=== PATIENT | male | born 1935 | race Caucasian/White ===

== ENCOUNTER 2020-06-20 20:06 | Inpatient (IN) | payer MEDICARE, BC ==
[~2020-06-20] VITALS: Ht 185.4 cm; Wt 84.4 kg
--- NOTE | 2020-06-20 20:10 | NUR ---
PT AAOX3, C/O R ARM PAIN. PLACED ON MONITOR AND PULSE OX. VSS. NO ACUTE DISTRESS NOTED. MD AT BEDSIDE FOR EVAL. AWAITING ORDERS.
--- NOTE | 2020-06-20 20:15 | NUR ---
PT AAOX3, NAME, , PLACE. C/O L ARM PAIN. STATED GOES TO DIALYSIS TTHF
--- NOTE | 2020-06-20 20:58 | NUR ---
LINE ESTABLISHED LH 20G, BLOOD COLLECTED, SENT TO LAB.
--- NOTE | 2020-06-20 20:59 | NUR ---
RADIOLOGY AT BEDSIDE.
[2020-06-20 21:06] LABS: BASOPHILS % (AUTO) 0.6 % (0.0-2.0); EOSINOPHILS % (AUTO) 3.7 % (0.0-6.0); HEMATOCRIT 32 % (39-51); HEMOGLOBIN 10.5 g/dL (13.5-17.5); LYMPHOCYTES # (AUTO) 0.7 /CMM (0.8-4.8); LYMPHOCYTES % (AUTO) 14.7 % (20.0-44.0); MEAN CORPUSCULAR HGB CONC 33 g/dl (31.0-36.0); MEAN CORPUSCULAR VOLUME 90 fL (80-96); MONOCYTES # (AUTO) 0.4 /CMM (0.1-1.30); MONOCYTES % (AUTO) 8.3 % (2.0-12.0); NEUTROPHILS # (AUTO) 3.4 /CMM (1.8-8.9); NEUTROPHILS % (AUTO) 72.7 % (43.0-81.0); PLATELET COUNT (AUTO) 268 /CMM (150-450); RED BLOOD CELL COUNT(AUTO) 3.49 MIL/uL (4.5-6.0); WHITE BLOOD COUNT (AUTO) 4.7 K/uL (4.3-11.0)
[2020-06-20 21:17] LABS: CALCIUM, SERUM 9.3 mg/dL (8.5-10.1); CARBON DIOXIDE 31 mmol/L (21-32); CHLORIDE 98 mmol/L (98-107); CREATININE 7.4 mg/dL (0.6-1.3); GLUCOSE 150 mg/dL (74-106); POTASSIUM 3.9 mmol/L (3.5-5.1); SODIUM SERUM 137 mmol/L (136-145); UREA NITROGEN, BLOOD 46 mg/dL (7-18)
--- NOTE | 2020-06-20 21:19 | NUR ---
US AT BEDSIDE
--- NOTE | 2020-06-20 21:19 | NUR ---
COVID SWAB COLLECTED, SENT TO LAB.
[2020-06-20] MEDS ORDERED: NITROGLYCERIN PACKET 1 GM PACKET TD ONE (22:00)
[2020-06-20] MEDS ORDERED: ASPIRIN 325 MG TABLET PO ONE (22:00)
--- NOTE | 2020-06-20 22:00 | NUR ---
PT NOW C/P CP, PA AT BEDSIDE FOR EVAL. AWAITING ORDERS.
--- NOTE | 2020-06-20 22:20 | NUR ---
BURKE DAUGHTER. PHONE [phone]
--- NOTE | 2020-06-20 22:29 | NUR ---
PT NOW C/O CP. GIVEN ASPIRIN 325 PO. AWAITING FOR BP AND HR FOR NITRO.
--- NOTE | 2020-06-20 22:51 | NUR ---
PT IN BED RESTING COMFORTABLY. PROVIDED WITH CRACKERS.
--- NOTE | 2020-06-20 23:50 | NUR ---
REPORT GIVEN TO JEREMY BRAY FOR TANJA
[2020-06-21] VITALS (8 sets, daily range): BP systolic 111–143; BP diastolic 52–67
[2020-06-21] MEDS ORDERED: Z GUARD REMEDY 2 OZ OINT TP PRN
[2020-06-21] MEDS ORDERED: MAGNESIUM HYDROXIDE 30 ML UDC PO PRN
[2020-06-21] MEDS ORDERED: ZOLPIDEM TARTRATE 5 MG TABLET PO PRN
[2020-06-21] MEDS ORDERED: MAG HYDROX/AL HYDROX/SIMETH 30 ML UDC PO PRN
[2020-06-21] MEDS ORDERED: ACETAMINOPHEN 325 MG TABLET PO PRN
[2020-06-21] MEDS ORDERED: HYDROCODONE/APAP 5/325MG TABLET PO PRN
[2020-06-21] MEDS ORDERED: ONDANSETRON HCL/PF 4 MG/2 ML VIAL IVP PRN
--- NOTE | 2020-06-21 00:16 | NUR ---
PT TRANSFERED PER ACLS PROTOCOL
[2020-06-21] MEDS ORDERED: LEVO500T90 PO (00:23)
[2020-06-21] MEDS ORDERED: TAMS-12 PO (00:23)
[2020-06-21] MEDS ORDERED: POLY17PO4 PO (00:23)
[2020-06-21] MEDS ORDERED: INSU100V39 SQ (00:23)
[2020-06-21] MEDS ORDERED: SERT25TA PO (00:23)
[2020-06-21] MEDS ORDERED: FINA5TAB3 PO (00:23)
[2020-06-21] MEDS ORDERED: RISP1TAB7 PO (00:23)
[2020-06-21] MEDS ORDERED: HYDR-4384 PO (00:23)
[2020-06-21] MEDS ORDERED: PANT40TA2 PO (00:23)
[2020-06-21] MEDS ORDERED: SEVE800T8 PO (00:23)
--- NOTE | 2020-06-21 01:08 | NUR ---
MILANESE KNITTING MACHINE OPERATOR ADMITTING NOTES ADMITTED PATIENT, TRANSPORTED VIA GURNEY. CALM, NO SIGNS OF ACUTE RESPIRATORY OR CARDIAC DISTRESS NOTED. ALERT ORIENTED X3 WITH EPISODE OF CONFUSION. COOPERATES WITH NURSING CARE. INITIATED ADMISSION. SKIN IS INTACT A QUICK OVERVIEW. PATIENT REFUSED TO HAVE THOROUGH SKIN ASSESSMENT. NO OPEN WOUND NOTED WITH HD CATH ON HIS RIGHT ARM PAIN. PATIENT IS REQUESTING TO REST AND SLEEP AT THIS TIME. CONNECTED TO TELE MONITOR, MONITOR READS SINUS BRADYCARDIA 50s. ORIENTED TO ROOM AND THE USE OF CALL LIGHT. PERIPHERAL IV ACCESS ON HIS LEFT HAND G#20 INTACT AND PATENT. KEEP CLEAN WARM DRY AND COMFORTABLE. ALL NEEDS ANTICIPATED. WILL CONTINUE TO MONITOR ACCORDINGLY.
[2020-06-21 06:51] LABS: BASOPHILS % (AUTO) 0.9 % (0.0-2.0); EOSINOPHILS % (AUTO) 5.4 % (0.0-6.0); HEMATOCRIT 30 % (39-51); HEMOGLOBIN 10.2 g/dL (13.5-17.5); LYMPHOCYTES # (AUTO) 0.7 /CMM (0.8-4.8); LYMPHOCYTES % (AUTO) 16.6 % (20.0-44.0); MEAN CORPUSCULAR HGB CONC 34 g/dl (31.0-36.0); MEAN CORPUSCULAR VOLUME 90 fL (80-96); MONOCYTES # (AUTO) 0.4 /CMM (0.1-1.30); MONOCYTES % (AUTO) 9.6 % (2.0-12.0); NEUTROPHILS # (AUTO) 2.9 /CMM (1.8-8.9); NEUTROPHILS % (AUTO) 67.5 % (43.0-81.0); PLATELET COUNT (AUTO) 261 /CMM (150-450); RED BLOOD CELL COUNT(AUTO) 3.38 MIL/uL (4.5-6.0); WHITE BLOOD COUNT (AUTO) 4.3 K/uL (4.3-11.0)
--- NOTE | 2020-06-21 07:01 | NUR ---
SHOWROOM SALES CONSULTANT NOTES ALL NEEDS ATTENDED AND MET, ABLE TO REST AND SLEPT AT INTERVALS. TELEMONITOR READS SINUS EUGENE 48 - 52. KEEP CLEAN WARM DRY AND COMFORTABLE. SAFETY MEASURES IN PLACE, CALL LIGHT WITHIN EASY REACH. WILL ENDORSE TO AM NURSE FOR CONTINUITY OF CARE.
[2020-06-21 07:08] LABS: CHOLESTEROL 119 mg/dL (<200); HDL CHOLESTEROL 31 mg/dL (40-60); LDL 71 mg/dL (0-99); TRIGLYCERIDES 81 mg/dL (30-150)
[2020-06-21 07:17] LABS: CALCIUM, SERUM 9.3 mg/dL (8.5-10.1); CARBON DIOXIDE 31 mmol/L (21-32); CHLORIDE 100 mmol/L (98-107); GLUCOSE 105 mg/dL (74-106); MAGNESIUM 2.4 mg/dL (1.8-2.4); PHOSPHORUS 3.7 mg/dL (2.5-4.9); SODIUM SERUM 139 mmol/L (136-145); UREA NITROGEN, BLOOD 50 mg/dL (7-18)
[2020-06-21 07:19] LABS: CREATININE 7.9 mg/dL (0.6-1.3)
--- NOTE | 2020-06-21 07:35 | NUR ---
MS RN Received on bed, awake,alert,oriented x4,not in any form of distress, respirations even and unlabored,no sob noted. lungs are clear,abdomen soft,ositive bowel sounds,denies pain at this time, will monitor patient.
--- NOTE | 2020-06-21 09:20 | NUR ---
ms momin breakfast served,due meds given,tolerated well.
--- NOTE | 2020-06-21 11:30 | NUR ---
ms rn was seen by Robby sanders/ orders made and carried out.
[2020-06-21] MEDS ORDERED: risperiDONE 1 MG TABLET PO SCH (12:00)
[2020-06-21] MEDS: SERTRALINE HCL 25 MG TABLET PO SCH (13:59)
[2020-06-21] MEDS: SEVELAMER CARBONATE 800 MG TABLET PO SCH (14:00)
[2020-06-21] MEDS: TAMSULOSIN 0.4 MG CAP.SR.24H PO SCH (14:00)
[2020-06-21] MEDS: PANTOPRAZOLE 40 MG TABLET.DR PO SCH (14:00)
[2020-06-21] MEDS: FINASTERIDE (5 MG) 5 MG TABLET PO SCH (14:00)
--- NOTE | 2020-06-21 15:40 | NUR ---
ms merrill patient swab for pcr covid,sent to lab.
--- NOTE | 2020-06-21 17:31 | NUR ---
TECHNICIAN TERMINAL AND REPEATERALUM PLANT SUPERVISOR ADMISSION NOTES RECEIVED PT FROM TELEMETRY FLOOR REPORTED GIVEN BY BENY BRAY. PT AAOX3, RESPONSIVE TO STIMULI, EPISODES OF CONFUSION. RESPIRATION EVEN AND NON LABORED WITH NO ACUTE RESPIRATORY DISTRESS, TOLERATING RA. ABD SOFT AND NON DISTENDED WITH ACTIVE BOWEL SOUNDS, PT ABLE TO URINATE CLOUDY URINE PER REPORT, WITH HD TTS, SCHEDULED TODAY. PT DENIES PAIN AND DISCOMFORT. SKIN WARM TO TOUCH AND DRY. IV SITE AT LEFT HAND #20 PATENT IN FLUSHING. TELE MONITOR SHOWS SINUS BRADYCARDIA TO SINUS RHYTHM. BED IN LOW LOCKED POSITION, SR X UP FOR SAFETY, SEMI FOWLERS, CALL LIGHT WITHIN REACH. WILL CONTINUE TO MONITOR CARE
--- NOTE | 2020-06-21 17:45 | NUR ---
ms rn patient transferred to [facility] w/ r/o standard. Addendum: 06/21/20 at 1822 by BENY GAMBOA RN wrong time entry
--- NOTE | 2020-06-21 18:52 | NUR ---
OUTSIDE PLANT TECHNICIAN CLOSING NOTES PT A/OX3, ABLE TO MAKE NEEDS KNOWN. NOT IN ACUTE RESPIRATORY DISTRESS, TOLERATING RA WITH NO SOB. PT DENIES PAIN AND DISCOMFORT. SKIN WARM TO TOUCH AND DRY. IV SITE AT LEFT HAND @ 20, NO S/SX ON INFILTRATION. HD TODAY, RIGHT ARM HD SITE. WAITING FOR NURSE. TELE MONITOR SHOWS SINUS RHYTHM 62 WITH PAC AND 1ST DEGREE BLOCK. ALL CONCERNS ATTENDED. ENDORSED CARE TO NEXT SHIFT.
--- NOTE | 2020-06-21 19:10 | NUR ---
OPHTHALMIC MEDICAL ASSISTANT NOTES RECEIVED PT IN AWAKE AND ABLE TO MAKE NEEDS KNOWN. PT A/OX2-3 WITH PERIODS OF CONFUSION. RESPIRATIONS EVEN AND NON-LABORED WITH NO S/S OF ACUTE DISTRESS OR SOB NOTED. NO COMPLAINTS OF PAIN AT THIS TIME. PT NOTED WITH IV SITE AT LEFT HAND #20 PATENT AND SL. BAYRON AV SHUNT. SAFETY MEASURES IN PLACE WITH BED IN LOWEST LOCKED POSITION WITH SIDE RAILS UP X2. CALL LIGHT WITHIN REACH. WILL CONTINUE TO MONITOR.
[2020-06-21] MEDS: risperiDONE 1 MG TABLET PO SCH (22:13)
--- NOTE | 2020-06-21 22:46 | NUR ---
WET PRESS TENDER NOTES PT NOTED WITH URINARY URGENCY, PAIN, AND DIFFICULTY URINATING. MD MADE AWARE. ORDER FOR UA WITH CULTURE. WILL CONTINUE TO MONITOR.
[2020-06-21 23:23] LABS: BILIRUBIN,URINE NEGATIVE (NEGATIVE); BLOOD, URINE MODERATE Ery/uL (NEGATIVE); COLOR,URINE YELLOW (YELLOW); LEUKOCYTE ESTERASE ,URINE LARGE (NEGATIVE); NITRITE, URINE NEGATIVE (NEGATIVE); PROTEIN,URINE 100 mg/dl (NEGATIVE); UGLUCOSE NEGATIVE (NEGATIVE); UROBILINOGEN,URINE 0.2 EU/dL (0.2)
--- NOTE | 2020-06-21 23:31 | NUR ---
INTELLIGENCE APPLICATIONS NOTES PT DONE WITH DIALYSIS, 1.5L OUT. WILL CONTINUE TO MONITOR.
[2020-06-21 23:39] LABS: BACTERIA,URINE Few /HPF (None Seen); SQUAMOUS EPITHELIAL CELL,UR Few /HPF (None Seen); WBC,URINE TOO NUMEROUS TO COUN /HPF (0-3)
[2020-06-22] VITALS: BP 94/46
[2020-06-22 04:00] VITALS: BP 95/47
--- NOTE | 2020-06-22 06:51 | NUR ---
RUBBER PRESS OPERATOR NOTES PT IN AWAKE AND ABLE TO MAKE NEEDS KNOWN. PT A/OX2-3 WITH PERIODS OF CONFUSION. RESPIRATIONS EVEN AND NON-LABORED WITH NO S/S OF ACUTE DISTRESS OR SOB NOTED THROUGHOUT SHIFT. NO COMPLAINTS OF PAIN AT THIS TIME. PT NOTED WITH IV SITE AT LEFT HAND #20 PATENT AND SL. PT KEPT CLEAN, DRY, AND COMFORTABLE. PT NOTED WITH BAYRON AV SHUNT. SAFETY MEASURES IN PLACE WITH BED IN LOWEST LOCKED POSITION WITH SIDE RAILS UP X2. CALL LIGHT WITHIN REACH. WILL ENDORSE TO ONCOMING NURSE FOR TANJA.
[2020-06-22 07:00] LABS: BASOPHILS % (AUTO) 0.7 % (0.0-2.0); EOSINOPHILS % (AUTO) 4.7 % (0.0-6.0); HEMATOCRIT 29 % (39-51); HEMOGLOBIN 9.7 g/dL (13.5-17.5); LYMPHOCYTES # (AUTO) 0.7 /CMM (0.8-4.8); LYMPHOCYTES % (AUTO) 12.2 % (20.0-44.0); MEAN CORPUSCULAR HGB CONC 33 g/dl (31.0-36.0); MEAN CORPUSCULAR VOLUME 92 fL (80-96); MONOCYTES # (AUTO) 0.4 /CMM (0.1-1.30); MONOCYTES % (AUTO) 7.1 % (2.0-12.0); NEUTROPHILS # (AUTO) 4.5 /CMM (1.8-8.9); NEUTROPHILS % (AUTO) 75.3 % (43.0-81.0); PLATELET COUNT (AUTO) 258 /CMM (150-450)
[2020-06-22 07:02] LABS: CALCIUM, SERUM 9.2 mg/dL (8.5-10.1); CARBON DIOXIDE 30 mmol/L (21-32); CHLORIDE 99 mmol/L (98-107); CREATININE 5.9 mg/dL (0.6-1.3); GLUCOSE 91 mg/dL (74-106); POTASSIUM 4.4 mmol/L (3.5-5.1); SODIUM SERUM 136 mmol/L (136-145); UREA NITROGEN, BLOOD 32 mg/dL (7-18)
[2020-06-22 08:00] VITALS: BP 100/52
[2020-06-22] MEDS: SEVELAMER CARBONATE 800 MG TABLET PO SCH (08:16)
[2020-06-22] MEDS: PANTOPRAZOLE 40 MG TABLET.DR PO SCH (08:16)
[2020-06-22] MEDS: SERTRALINE HCL 25 MG TABLET PO SCH (08:16)
[2020-06-22] MEDS: TAMSULOSIN 0.4 MG CAP.SR.24H PO SCH (08:16)
[2020-06-22] MEDS: FINASTERIDE (5 MG) 5 MG TABLET PO SCH (08:17)
[2020-06-22] MEDS: HEPARIN SODIUM, PORCINE 5000 UNITS/1 ML VIAL SQ SCH (08:22)
[2020-06-22 08:31] LABS: IRON, SERUM 81 ug/dl (50-175); TOTAL IRON BINDING CAPACITY 193 ug/dl (250-450)
[2020-06-22 08:44] LABS: FERRITIN 531 ng/mL (8-388)
[2020-06-22 09:07] VITALS: BP 100/42
[2020-06-22 12:00] VITALS: BP 142/48
[2020-06-22] MEDS ORDERED: EPOETIN ALFA (10,000 UNIT) 10,000 UNIT/ML VIAL SQ ONE (12:00)
--- NOTE | 2020-06-22 12:00 | NUR ---
RN NOTE D/C TELE AND TRANSFERRED TO THIRD FLOOR. REPORT GIVEN TO WILLIE
--- NOTE | 2020-06-22 13:00 | NUR ---
MS RN NOTES PERIPHERAL IV WAS REMOVED BY PATIENT. NEW IV SITE STARTED ON LFA G20 WITH GOOD BLOOD RETURN. WILL CONTINUE TO MONITOR.
[2020-06-22] MEDS: CEFTRIAXONE 1 G in IV D5W 50 ML IV SCH (14:25)
--- NOTE | 2020-06-22 18:44 | NUR ---
MS RN NOTES PATIENT IN BED RESTING NO SOB OR ACUTE DISTRESS NOTED. ALL DUE MEDICATIONS ADMINISTERED. ALL NEEDS MET. WILL ENDORSE CARE TO PM SHIFT.
--- NOTE | 2020-06-22 19:35 | NUR ---
MS RN OPENING NOTES RECEIVED PATIENT IN BED ALERT AND ORIENTED X 2-3. VERBALLY RESPONSIVE AND ABLE TO FOLLOW DIRECTIONS. BREATHING REGULAR AND UNLABORED ON ROOM AIR. LEFT FOREARM G20 IV LINE INTACT AND PATENT, FLUSHING WELL WITH NO BLEEDING OR S/S OF INFILTRATION NOTED. RIGHT UPPER ARM AV SHUNT POSITIVE FOR BRUIT AND THRILL, NO ACTIVE BLEEDING SEE. DENIES SUICIDAL IDEATION OR PAIN/DISCOMFORT AT THIS TIME. BED LOW AND LOCKED ON SEMI FOWLERS POSITION. CALL LIGHT IN REACH. WILL CONTINUE TO MONITOR.
[2020-06-22 20:00] VITALS: BP 125/64
[2020-06-22] MEDS: risperiDONE 1 MG TABLET PO SCH (21:09)
[2020-06-23 05:59] LABS: BASOPHILS % (AUTO) 0.8 % (0.0-2.0); EOSINOPHILS % (AUTO) 3.5 % (0.0-6.0); HEMATOCRIT 30 % (39-51); HEMOGLOBIN 9.7 g/dL (13.5-17.5); LYMPHOCYTES # (AUTO) 0.5 /CMM (0.8-4.8); LYMPHOCYTES % (AUTO) 9.5 % (20.0-44.0); MEAN CORPUSCULAR HGB CONC 33 g/dl (31.0-36.0); MEAN CORPUSCULAR VOLUME 90 fL (80-96); MONOCYTES # (AUTO) 0.3 /CMM (0.1-1.30); MONOCYTES % (AUTO) 6.5 % (2.0-12.0); NEUTROPHILS # (AUTO) 4.1 /CMM (1.8-8.9); NEUTROPHILS % (AUTO) 79.7 % (43.0-81.0); PLATELET COUNT (AUTO) 257 /CMM (150-450); RED BLOOD CELL COUNT(AUTO) 3.27 MIL/uL (4.5-6.0); WHITE BLOOD COUNT (AUTO) 5.2 K/uL (4.3-11.0)
[2020-06-23 06:14] LABS: CARBON DIOXIDE 30 mmol/L (21-32); CHLORIDE 100 mmol/L (98-107); CREATININE 7.3 mg/dL (0.6-1.3); GLUCOSE 95 mg/dL (74-106); SODIUM SERUM 138 mmol/L (136-145); UREA NITROGEN, BLOOD 43 mg/dL (7-18)
--- NOTE | 2020-06-23 06:20 | NUR ---
MS RN CLOSING NOTES PATIENT IN BED ALERT AND ORIENTED X 2 WITH EPISODE OF CONFUSION/AGITATION. AFEBRILE WITH NO S/S OF DISTRESS OBSERVED. LEFT FOREARM G20 IV LINE PATENT AND FLUSHING WELL. RIGHT UPPER ARM AV SHUNT POSITIVE FOR BRUIT AND THRILL, NO ACTIVE BLEEDING SEE. NO COMPLAINTS OF PAIN/DISCOMFORT REPORTED AT THIS TIME. BED LOW AND LOCKED ON SEMI FOWLERS POSITION. CALL LIGHT IN REACH. WILL ENDORSE TO MORNING SHIFT FOR TANJA.
[2020-06-23 08:00] VITALS: BP 126/60
--- NOTE | 2020-06-23 08:01 | NUR ---
MS RN NOTES PATIENT IN BED RESTING. ALERT, ORIENTED X2. PATIENT IS VERY FORGETFUL. NO SOB OR ACUTE DISTRESS NOTED. PERIPHERAL IV INTACT PATENT. SAFETY MEASURES IN PLACE. WILL CONTINUE TO MONITOR.
[2020-06-23] MEDS: SERTRALINE HCL 25 MG TABLET PO SCH (08:55)
[2020-06-23] MEDS: SEVELAMER CARBONATE 800 MG TABLET PO SCH (08:55)
[2020-06-23] MEDS: TAMSULOSIN 0.4 MG CAP.SR.24H PO SCH (08:56)
[2020-06-23] MEDS: FINASTERIDE (5 MG) 5 MG TABLET PO SCH (08:56)
[2020-06-23] MEDS: PANTOPRAZOLE 40 MG TABLET.DR PO SCH (08:56)
[2020-06-23] MEDS: HEPARIN SODIUM, PORCINE 5000 UNITS/1 ML VIAL SQ SCH (08:56)
[2020-06-23] MEDS ORDERED: CEPH-570 PO (10:18)
--- NOTE | 2020-06-23 11:00 | NUR ---
MS RN NOTES CLARIFIED ORDERS WITH DR. MISHRA DISCHARGE IS MEANT TO SNF NOT HOME.
[2020-06-23] MEDS: CEFTRIAXONE 1 G in IV D5W 50 ML IV SCH (13:06)
--- NOTE | 2020-06-23 13:12 | NUR ---
MS RN NOTES PATIENT COMPLETED HD TOLERATED WELL WITH 1 LITTER OUTPUT.
--- NOTE | 2020-06-23 14:43 | NUR ---
MS ASA NOTES CALLED AND GAVE REPORT TO DRU BRAY AT [facility]. ALSO INFORMED PATIENTS DAUGHTER CHACE PHONE NUMBER . DAUGHTER AGREED WITH DISCHARGE. WAITING FOR TRANSPORTATION.
--- NOTE | 2020-06-23 16:05 | NUR ---
MS RN NOTES PATIENT DISCHARGED TO [facility] IN STABLE CONDITION. DISCHARGE PROTOCOL FOLLOWED. MD AWARE OF ABNORMAL LABS AND TESTS. DISCHARGE TEACHING PROVIDED TO SN AT [facility] AND PATIENTS DAUGHTER. PERIPHERAL IV REMOVED WITH MINIMAL BLEEDING. ID BAND REMOVED. PATIENT DISCHARGE WITH AMBULANCE AND EMT.
[2020-06-24] MEDS ORDERED: PANTOPRAZOLE 40 MG TABLET.DR PO SCH (07:30)
== END 2020-06-23 15:40 | DRG 302 ==
LOC: ER 20:13 → TELE 06-21 00:01 → TELE2 06-21 17:46 → MED 06-22 12:02
PROVIDERS: ADMIT Family Medicine
PROC: 5A1D70Z Performance of Urinary Filtration, Intermittent, Less than 6 Hours Per Day (ICD-10-PCS; principal; 2020-06-21)
DX: I25.10 Atherosclerotic heart disease of native coronary artery without angina pectoris (principal); N18.6 End stage renal disease; G92 Toxic encephalopathy; I12.0 Hypertensive chronic kidney disease with stage 5 chronic kidney disease or end stage renal disease; N39.0 Urinary tract infection, site not specified; D63.8 Anemia in other chronic diseases classified elsewhere; E11.22 Type 2 diabetes mellitus with diabetic chronic kidney disease; E11.65 Type 2 diabetes mellitus with hyperglycemia; F03.90 Unspecified dementia, unspecified severity, without behavioral disturbance, psychotic disturbance, mood disturbance, and anxiety; M89.9 Disorder of bone, unspecified; I48.91 Unspecified atrial fibrillation; Z99.2 Dependence on renal dialysis; I70.0 Atherosclerosis of aorta; Z79.4 Long term (current) use of insulin; Z83.3 Family history of diabetes mellitus; Z85.46 Personal history of malignant neoplasm of prostate; Z85.51 Personal history of malignant neoplasm of bladder
CPT/HCPCS: 36415; 71045-TC; 80048-TC; 80061-TC; 81001; 82728-TC; 83540-TC; 83735-TC; 84100-TC; 84484-TC; 85025-TC; 87081-TC; 87086-TC; 90935-TC; 93971-TC; C9803; G0378; J0696; J0885; J1644; J7060; U0003

== ENCOUNTER 2020-07-18 01:56 | Inpatient (IN) | payer MEDICARE, BC ==
[~2020-07-18] VITALS: Ht 177.8 cm; Wt 73.5 kg
[~2020-07-18 01:56] MED LIST: CEPH-570 PO; FINA5TAB3 PO; HYDR-4384 PO; INSU100V39 SQ; PANT40TA2 PO; POLY17PO4 PO; RISP1TAB7 PO; SERT25TA PO; SEVE800T8 PO; TAMS-12 PO
--- NOTE | 2020-07-18 01:57 | NUR ---
PT JARAD FROM [facility] C/O COUGH W/ CONGESTION AND FEVER. PT TESTED POSITIVE FOR COVID LAST 07/13/20. PT AAOX4, VSS, RESPIRATIONS EVEN AND UNLABORED W/ NAD NOTED. PT CONNECTED TO THE COUPON AND BOND COLLECTION CLERK AND POX.
--- NOTE | 2020-07-18 02:20 | NUR ---
BLOOD COLLECTED AND SENT TO LAB
--- NOTE | 2020-07-18 02:26 | NUR ---
PT SATTING 92% ON RA.PT PLACED ON 2 LPM N/C SATTING 96%.
[2020-07-18] MEDS ORDERED: ACETAMINOPHEN 325 MG TABLET PO ONE (02:30)
[2020-07-18] MEDS ORDERED: ACETAMINOPHEN ES 500 MG TABLET ONE (02:33)
--- NOTE | 2020-07-18 02:35 | NUR ---
SAT 98% ON 2L NC.
[2020-07-18 02:50] LABS: CALCIUM, SERUM 8.7 mg/dL (8.5-10.1); CARBON DIOXIDE 31 mmol/L (21-32); CHLORIDE 98 mmol/L (98-107); CREATININE 5.9 mg/dL (0.6-1.3); GLUCOSE 109 mg/dL (74-106); POTASSIUM 3.7 mmol/L (3.5-5.1); SODIUM SERUM 138 mmol/L (136-145); UREA NITROGEN, BLOOD 39 mg/dL (7-18)
[2020-07-18 02:53] LABS: BASOPHILS % (AUTO) 0.5 % (0.0-2.0); EOSINOPHILS % (AUTO) 0.8 % (0.0-6.0); HEMATOCRIT 24 % (39-51); LYMPHOCYTES # (AUTO) 0.2 /CMM (0.8-4.8); LYMPHOCYTES % (AUTO) 4.1 % (20.0-44.0); MEAN CORPUSCULAR HGB CONC 33 g/dl (31.0-36.0); MEAN CORPUSCULAR VOLUME 92 fL (80-96); MONOCYTES # (AUTO) 0.2 /CMM (0.1-1.30); MONOCYTES % (AUTO) 4.1 % (2.0-12.0); NEUTROPHILS # (AUTO) 4.2 /CMM (1.8-8.9); NEUTROPHILS % (AUTO) 90.5 % (43.0-81.0); PLATELET COUNT (AUTO) 194 /CMM (150-450); RED BLOOD CELL COUNT(AUTO) 2.62 MIL/uL (4.5-6.0); WHITE BLOOD COUNT (AUTO) 4.6 K/uL (4.3-11.0)
[2020-07-18 03:03] LABS: ALANINE AMINOTRANSFERASE 11 U/L (12-78); ALBUMIN 2.7 g/dL (3.4-5.0); ALKALINE PHOSPHATASE 83 U/L (46-116); ASPARTATE AMINOTRANSFERASE 25 U/L (15-37); B-TYPE NATRIURETIC PEPTIDE 12193 PG/ML (0-125); BILIRUBIN,DIRECT 0.7 mg/dL (0.0-0.2); BILIRUBIN,TOTAL 1.1 mg/dL (0.2-1.0); TOTAL PROTEIN, SERUM 6.4 g/dL (6.4-8.2)
--- NOTE | 2020-07-18 03:37 | NUR ---
Call from lab. Rapid covid positive.
--- NOTE | 2020-07-18 04:15 | NUR ---
PT ASLEEP. VSS.
[2020-07-18] MEDS ORDERED: AZITHROMYCIN 500 MG VIAL ONE (04:27)
[2020-07-18] MEDS ORDERED: CEFTRIAXONE 1GM BAG (ER ONLY) 50 ML IV ONE (04:28)
[2020-07-18] MEDS ORDERED: ONDANSETRON HCL/PF 4 MG/2 ML VIAL IVP PRN ×2 (04:30→15:30)
[2020-07-18] MEDS ORDERED: CEFTRIAXONE 1GM BAG (ER ONLY) 1 GM/50 ML PIGGYBACK IV ONE (04:30)
[2020-07-18] MEDS ORDERED: AZITHROMYCIN 500 MG in IV D5W 250 ML IV ONE (04:30)
[2020-07-18] MEDS ORDERED: ACETAMINOPHEN 650 MG/SUPP.RECT RC PRN (04:30)
[2020-07-18] MEDS ORDERED: CEFTRIAXONE 1 G in IV D5W 50 ML IV SCH (05:00)
--- NOTE | 2020-07-18 05:00 | NUR ---
PT ASLEEP, REAMINS ON 2L NC. SAT 98%.
[2020-07-18 05:47] LABS: C-REACTIVE PROTEIN 24.5 mg/dL (0.0-0.9)
--- NOTE | 2020-07-18 05:57 | NUR ---
PT REMAINS ASLEEP, VSS.
--- NOTE | 2020-07-18 06:51 | NUR ---
PT PROVIDED WITH MORE BLANKETS, KEPT COMFORTBALE.
[2020-07-18] MEDS ORDERED: ACET325T53 PO (07:58)
[2020-07-18] MEDS ORDERED: POLY17PO4 PO (07:58)
[2020-07-18] MEDS ORDERED: CRAN3875 PO (07:58)
[2020-07-18] MEDS ORDERED: LACT1CAP61 PO (07:58)
[2020-07-18] MEDS ORDERED: CRAN425C6 PO (07:58)
[2020-07-18] MEDS ORDERED: HYDR-4384 PO (07:58)
[2020-07-18] MEDS ORDERED: MAG-55 PO (07:58)
--- NOTE | 2020-07-18 09:44 | NUR ---
REPORT GIVEN TO MONTY BRAY FOR TANJA.
--- NOTE | 2020-07-18 10:07 | NUR ---
PATIENT TRANSFERRED TO ROOM 205-1 VIA ACLS PROTOCOL. NO DISTRESS NOTED. PATIENT IN STABLE CONDITION.
[2020-07-18 10:13] LABS: OCCULT BLOOD STOOL NEGATIVE (NEGATIVE)
--- NOTE | 2020-07-18 10:15 | NUR ---
TELE/RN ADMITTING NOTE Patient transferred safely to bed in room 205-1 via rney. A&O x 1-2, confused. No s/s of pain/discomfort at this time. VS taken. Breathing even and non-labored on 2L oxygen via NC, no respiratory distress noted. No cardiac distress noted, on tele monitor reading SR WITH PACs 81. IV access noted on L FA#18, patent and intact, and flushing well. Photos of skin impairment taken and placed on chart. Sensation from all peripheral extremities intact. Bed locked to its lowest position, side rails x 2 up, call light in hand. Will continue with current medical management. Addendum: 07/18/20 at 1704 by MONTY RODRIGUEZ RN In addition to above, BAYRON AV shunt noted with bruit and thrill.
[2020-07-18] MEDS: DEXAMETHASONE SOD PHOSPHATE 10 MG/ML VIAL IV SCH (14:54)
[2020-07-18] MEDS: HEPARIN SODIUM, PORCINE 5000 UNITS/1 ML VIAL SQ SCH ×2 (14:55→22:39)
[2020-07-18] MEDS ORDERED: POLYETHYLENE GLYCOL 3350 17 GM POWD.PACK PO PRN (15:30)
[2020-07-18] MEDS ORDERED: Z GUARD REMEDY 2 OZ OINT TP PRN (15:30)
[2020-07-18] MEDS ORDERED: MAGNESIUM HYDROXIDE 30 ML UDC PO PRN (15:30)
[2020-07-18] MEDS ORDERED: MAG HYDROX/AL HYDROX/SIMETH 30 ML UDC PO PRN (15:30)
[2020-07-18] MEDS ORDERED: HYDROCODONE/APAP 5/325MG TABLET PO PRN ×2 (15:30)
[2020-07-18] MEDS ORDERED: ACETAMINOPHEN 325 MG TABLET PO PRN ×2 (15:30)
[2020-07-18] MEDS ORDERED: ZOLPIDEM TARTRATE 5 MG TABLET PO PRN (15:30)
--- NOTE | 2020-07-18 15:46 | NUR ---
Patient has hx dementia,spoke with Janelle at the SNF, confirmed patient resides at [facility] [phone]. He is chair and bed fast most of the time and requires max to total assist with adl's. Current dc plan is to return to [facility] Addendum: 07/18/20 at 1546 by SABRINA BOUDREAUX RN Amended: Links added.
--- NOTE | 2020-07-18 16:29 | NUR ---
TELE/RN NOTE Temperature noted at 102.2, patient experiencing chills and fever. Administered Tylenol 650 mg PO. Will continue to monitor. Addendum: 07/18/20 at 1643 by MONTY RODRIGUEZ RN In addition to above, cooling measures done.
[2020-07-18] MEDS: SEVELAMER CARBONATE 800 MG TABLET PO SCH (17:31)
--- NOTE | 2020-07-18 17:45 | NUR ---
TELE/RN NOTE Telephone consent given by daughter, Jolanta Wilson (patient's daughter), for convalescent plasma and placed in chart. Witnessed by Monty BRAY and Iris BRAY Addendum: 07/18/20 at 1829 by MONTY RODRIGUEZ RN In addition to above, telephone consent is also given by Jolanta Wilson for hemodialysis. Witnessed by Monty BRAY and Yahaira BRAY
[2020-07-18] MEDS ORDERED: ALBUMIN 25% 25 GM in PREMIX 1 EA IV PRN (18:30)
--- NOTE | 2020-07-18 19:30 | NUR ---
TELE/RN CLOSING NOTE Patient resting in bed A&O x 1-2, confused. All needs met and attended to. No s/s of pain/discomfort at this time. Breathing even and non-labored on 2L oxygen via NC, no respiratory distress noted. No cardiac distress noted, on tele monitor reading SR WITH PACs 60. IV access noted on L FA#18, patent and intact, and flushing well. Fall precautions maintained. Will endorse to line technician nurse.
--- NOTE | 2020-07-18 19:40 | NUR ---
TELE/RN OPENING NOTES: PATIENT IN BED RESTING A&O X 1-2, CONFUSED. NO S/S OF PAIN/DISCOMFORT AT THIS TIME. BREATHING EVEN AND NON-LABORED ON 2L OXYGEN VIA NC, NO RESPIRATORY DISTRESS NOTED. NO CARDIAC DISTRESS NOTED, ON TELE MONITOR READING SR 60. IV ON THE LFA #18G. BAYRON AV SHUNT PRESENT. HD ONGOING RIGHT NOW. FALL PRECAUTIONS MAINTAINED. WILL CONTINUE TO MONITOR ACCORDINGLY.
--- NOTE | 2020-07-18 19:47 | NUR ---
TELE/RN NOTE Sent convalescent plasma checklist, consent, and IRB forms to lab by hand
[2020-07-18 20:00] VITALS: BP 116/52
--- NOTE | 2020-07-18 20:48 | NUR ---
Patient has hx dementia,spoke with Janelle at the [facility], confirmed patient resides at [facility] [phone]. He is chair and bed fast most of the time and requires max to total assist with adl's. Has ESRD/HD, receives HD every TThS 1:30PM at [facility] [phone]. Rapid COVID -19 test result is positive, pcr is pending. Current dc plan is to go return to [facility]. Addendum: 07/18/20 at 2048 by SABRINA BOUDREAUX RN Amended: Links added.
[2020-07-18] MEDS ORDERED: HEPARIN SODIUM, PORCINE 5000 UNITS/1 ML VIAL SQ SCH (21:00)
[2020-07-18] MEDS: risperiDONE 1 MG TABLET PO SCH (22:00)
[2020-07-19] VITALS: BP 110/52
--- NOTE | 2020-07-19 | NUR ---
TELE/RN NOTES: HD TOTAL OUTPUT IS 1200ML. PT I STABLE. VSS AND WNL. WILL CONTINUE TO MONITOR.
[2020-07-19 04:00] VITALS: BP 139/67
[2020-07-19] MEDS: CEFTRIAXONE 1 G in IV D5W 50 ML IV SCH ×2 (05:00→05:25)
[2020-07-19] MEDS: AZITHROMYCIN 250 MG TABLET PO SCH (05:20)
[2020-07-19] MEDS: HEPARIN SODIUM, PORCINE 5000 UNITS/1 ML VIAL SQ SCH ×3 (05:20→21:57)
--- NOTE | 2020-07-19 06:25 | NUR ---
TELE/RN NOTES: IV INSERTION UNSUCCESSFUL. NISHANT ORAL AND MAXILLOFACIAL SURGERY AT BEDSIDE, ALSO UNABLE TO TO INSERT A LINE. UNABLE TO ADMIN ROCEPHIN 1G DUE TO NO IV ACCESS. NOTIFIED RN PATHOLOGY TECHNOLOGIST AND REQ. FOR MIDLINE. AND MD AWARE. PT STABLE.
--- NOTE | 2020-07-19 06:28 | NUR ---
TELE/RN NOTES: ORDER PLACED FOR IV MIDLINE.
--- NOTE | 2020-07-19 07:32 | NUR ---
TELE/RN CLOSING NOTES: PATIENT RESTING IN BED A&O X 1-2, REMAINS CONFUSED. KEPT CLEAN AND DRY AT ALL TIMES. ALL NURSING NEEDS MET AND ATTENDED TO. NO S/S OF PAIN/DISCOMFORT AT THIS TIME. BREATHING EVEN AND NON-LABORED ON 2L OXYGEN VIA NC, NO RESPIRATORY DISTRESS NOTED. NO CARDIAC DISTRESS NOTED, ON TELE MONITOR READING SR WITH PACS 60. NO IV LINE PRESENT. MIDLINE ORDERED FOR TODAY. FALL PRECAUTIONS MAINTAINED. WILL ENDORSE TO DAY SHIFT NURSE.
[2020-07-19 07:47] LABS: BASOPHILS % (AUTO) 0.3 % (0.0-2.0); HEMATOCRIT 30 % (39-51); HEMOGLOBIN 9.8 g/dL (13.5-17.5); LYMPHOCYTES # (AUTO) 0.3 /CMM (0.8-4.8); LYMPHOCYTES % (AUTO) 4.7 % (20.0-44.0); MEAN CORPUSCULAR HGB CONC 32 g/dl (31.0-36.0); MEAN CORPUSCULAR VOLUME 92 fL (80-96); MONOCYTES # (AUTO) 0.3 /CMM (0.1-1.30); MONOCYTES % (AUTO) 4.3 % (2.0-12.0); NEUTROPHILS # (AUTO) 5.9 /CMM (1.8-8.9); NEUTROPHILS % (AUTO) 90.7 % (43.0-81.0); PLATELET COUNT (AUTO) 284 /CMM (150-450); WHITE BLOOD COUNT (AUTO) 6.5 K/uL (4.3-11.0)
[2020-07-19 08:00] VITALS: BP 159/68
--- NOTE | 2020-07-19 08:07 | NUR ---
TIER LIFT OPERATOR OPEN NOTES PATIENT IS A/O X 1-2 WITH NO SIGNS OF DISTRESS ON 2L OF NASAL CANNULA. R UA AV SHUNT. AWAITING FOR A MIDLINE. NO COMPLAIN OF PAIN AT THIS TIME. TELE MONITOR SB 50'S . SAFETY MEASURES ARE APPLIED, BED IS IN LOW POSITION SIDE RAILS UP X 2. CALL LIGHT WITHIN REACH. WILL CONTINUE TO MONITOR.
[2020-07-19 08:50] LABS: ALANINE AMINOTRANSFERASE 15 U/L (12-78); ALBUMIN 3.1 g/dL (3.4-5.0); ALKALINE PHOSPHATASE 94 U/L (46-116); ASPARTATE AMINOTRANSFERASE 25 U/L (15-37); BILIRUBIN,TOTAL 0.9 mg/dL (0.2-1.0); CARBON DIOXIDE 31 mmol/L (21-32); CHLORIDE 96 mmol/L (98-107); CREATININE 5.3 mg/dL (0.6-1.3); GLUCOSE 131 mg/dL (74-106); PHOSPHORUS 3.5 mg/dL (2.5-4.9); POTASSIUM 4.3 mmol/L (3.5-5.1); SODIUM SERUM 137 mmol/L (136-145); TOTAL PROTEIN, SERUM 7.5 g/dL (6.4-8.2); UREA NITROGEN, BLOOD 36 mg/dL (7-18)
[2020-07-19 09:27] LABS: CHOLESTEROL 147 mg/dL (<200); HDL CHOLESTEROL 24 mg/dL (40-60); LDL 86 mg/dL (0-99); THYROID STIMULATING HORMONE 0.892 uIU/mL (0.358-3.74); TRIGLYCERIDES 139 mg/dL (30-150)
[2020-07-19] MEDS: SEVELAMER CARBONATE 800 MG TABLET PO SCH ×3 (10:14→17:09)
[2020-07-19] MEDS: SERTRALINE HCL 25 MG TABLET PO SCH (10:14)
[2020-07-19] MEDS: FINASTERIDE (5 MG) 5 MG TABLET PO SCH (10:15)
[2020-07-19] MEDS: TAMSULOSIN 0.4 MG CAP.SR.24H PO SCH (10:15)
[2020-07-19] MEDS: PANTOPRAZOLE 40 MG TABLET.DR PO SCH (10:15)
[2020-07-19] MEDS: DEXAMETHASONE SOD PHOSPHATE 10 MG/ML VIAL IV SCH (10:15)
[2020-07-19 12:00] VITALS: BP 119/49
[2020-07-19 16:00] VITALS: BP 113/58
[2020-07-19 16:24] LABS: C-REACTIVE PROTEIN 35.3 mg/dL (0.0-0.9)
--- NOTE | 2020-07-19 19:00 | NUR ---
RN OPENING NOTES Received patient resting on bed. No s/sx of discomfort noted at this time. Kept on bed clean, dry and comfortable. On fall and aspiration precautions. Will continue to monitor accordingly.
--- NOTE | 2020-07-19 19:35 | NUR ---
WOOD TILE INSTALLATION HELPER CLOSED NOTES PATIENT IS A/O X 1-2 WITH NO SIGNS OF DISTRESS ON 2L OF NASAL CANNULA. R UA AV SHUNT. L UA MIDLINE. NO COMPLAIN OF PAIN AT THIS TIME. TELE MONITOR SB 55'S . PATIENT KEPT CLEAN AND DRY. ALL NEEDS, CARE, TREATMENT,AND MEDICATIONS WERE ADMINISTERED ANTICIPATED PER ORDER. SAFETY MEASURES ARE APPLIED, BED IS IN LOW POSITION SIDE RAILS UP X 2. CALL LIGHT WITHIN REACH WILL ENDORSE TO THE SUPERVISOR HOUSECLEANER NURSE.
[2020-07-19 20:00] VITALS: BP 120/55
[2020-07-19] MEDS: risperiDONE 1 MG TABLET PO SCH (21:57)
[2020-07-20] VITALS: BP 121/62
[2020-07-20 04:00] VITALS: BP 141/56
[2020-07-20] MEDS: HEPARIN SODIUM, PORCINE 5000 UNITS/1 ML VIAL SQ SCH ×3 (05:04→22:37)
[2020-07-20] MEDS: AZITHROMYCIN 250 MG TABLET PO SCH (05:04)
[2020-07-20] MEDS: CEFTRIAXONE 1 G in IV D5W 50 ML IV SCH (05:04)
--- NOTE | 2020-07-20 06:41 | NUR ---
RN CLOSING NOTES Pt asleep on bed, no s/sx discomfort noted. No new unusualities noted. All nursing needs attended. Kept on bed clean, dry and comfortable. On fall and aspiration precautions. Endorsed.
[2020-07-20 06:46] LABS: BASOPHILS % (AUTO) 0.1 % (0.0-2.0); HEMATOCRIT 27 % (39-51); HEMOGLOBIN 8.9 g/dL (13.5-17.5); LYMPHOCYTES # (AUTO) 0.2 /CMM (0.8-4.8); MEAN CORPUSCULAR HGB CONC 33 g/dl (31.0-36.0); MEAN CORPUSCULAR VOLUME 92 fL (80-96); MONOCYTES # (AUTO) 0.3 /CMM (0.1-1.30); NEUTROPHILS # (AUTO) 7.6 /CMM (1.8-8.9); NEUTROPHILS % (AUTO) 93.9 % (43.0-81.0); PLATELET COUNT (AUTO) 281 /CMM (150-450); RED BLOOD CELL COUNT(AUTO) 2.98 MIL/uL (4.5-6.0); WHITE BLOOD COUNT (AUTO) 8.1 K/uL (4.3-11.0)
--- NOTE | 2020-07-20 07:32 | NUR ---
FAMILY LAW PARALEGAL OPEN NOTES PATIENT IS A/O X 1-2 WITH NO SIGNS OF DISTRESS ON 2L OF NASAL CANNULA. R UA AV SHUNT. L UA MIDLINE INTACT. NO COMPLAIN OF PAIN AT THIS TIME. TELE MONITOR SB. SAFETY MEASURES ARE APPLIED, BED IS IN LOW POSITION SIDE RAILS UP X 2. CALL LIGHT WITHIN REACH. WILL CONTINUE TO MONITOR.
[2020-07-20 08:00] VITALS: BP 156/57
[2020-07-20 08:21] LABS: CREATINE KINASE, TOTAL 29 U/L (39-308); FERRITIN 2179 ng/mL (8-388)
[2020-07-20 08:41] LABS: CALCIUM, SERUM 8.8 mg/dL (8.5-10.1); CARBON DIOXIDE 30 mmol/L (21-32); CHLORIDE 96 mmol/L (98-107); CREATININE 6.6 mg/dL (0.6-1.3); GLUCOSE 135 mg/dL (74-106); POTASSIUM 4.4 mmol/L (3.5-5.1); SODIUM SERUM 137 mmol/L (136-145); UREA NITROGEN, BLOOD 58 mg/dL (7-18)
[2020-07-20] MEDS: PANTOPRAZOLE 40 MG TABLET.DR PO SCH (09:47)
[2020-07-20] MEDS: SERTRALINE HCL 25 MG TABLET PO SCH (09:47)
[2020-07-20] MEDS: TAMSULOSIN 0.4 MG CAP.SR.24H PO SCH (09:47)
[2020-07-20] MEDS: FINASTERIDE (5 MG) 5 MG TABLET PO SCH (09:48)
[2020-07-20] MEDS: DEXAMETHASONE SOD PHOSPHATE 10 MG/ML VIAL IV SCH (09:48)
[2020-07-20] MEDS: SEVELAMER CARBONATE 800 MG TABLET PO SCH ×4 (09:50→18:22)
--- NOTE | 2020-07-20 13:47 | NUR ---
HELD MEDICATION SEVELAMER CARBONATE, PT CURRENTLY ON HD.
--- NOTE | 2020-07-20 15:30 | NUR ---
HD DONE TODAY BP 117/47 1L OUTPUT.
--- NOTE | 2020-07-20 15:40 | NUR ---
HELD HEPARIN, PT CURRENTLY ON HD.
[2020-07-20 16:00] VITALS: BP 127/64
--- NOTE | 2020-07-20 19:41 | NUR ---
TELE/RN OPENING NOTES: RECEIVED PATIENT IN BED RESTING COMFORTABLY, A&O X 1-2, WITH EPISODES OF CONFUSION. VERBALLY RESPONSIVE AND ABLE TO MAKE NEEDS KNOWN. S/P HD TODAY WITH OUTPUT OF 1L. NO S/S OF PAIN/DISCOMFORT AT THIS TIME. BREATHING EVEN AND NON-LABORED ON 2L OXYGEN VIA NC, TOLERATING WELL, NO RESPIRATORY DISTRESS NOTED. NO CARDIAC DISTRESS NOTED, ON TELE MONITOR READING SR. IV ON THE LFA MIDLINE #18G. BAYRON AV SHUNT PRESENT. SAFETY MEASURES IN PLACE, FALL PRECAUTIONS MAINTAINED. BED IN LOW, LOCKED POSITION, SR UPX2. WILL CONTINUE TO MONITOR ACCORDINGLY.
[2020-07-20 20:00] VITALS: BP 142/55
--- NOTE | 2020-07-20 20:05 | NUR ---
EDUCATION PROGRAM MANAGER CLOSED NOTES PATIENT IS A/O X 1-2 WITH NO SIGNS OF DISTRESS ON 2L OF NASAL CANNULA. R UA AV SHUNT. L UA MIDLINE. NO COMPLAIN OF PAIN AT THIS TIME. TELE MONITOR SB. PATIENT KEPT CLEAN AND DRY. ALL NEEDS, CARE, TREATMENT,AND MEDICATIONS WERE ADMINISTERED ANTICIPATED PER ORDER. SAFETY MEASURES ARE APPLIED, BED IS IN LOW POSITION SIDE RAILS UP X 2. CALL LIGHT WITHIN REACH WILL ENDORSE TO THE MANAGER TRANSPORTATION PLANNING NURSE.
--- NOTE | 2020-07-20 21:30 | NUR ---
TELE/RN NOTES: BIAS BINDING FOLDER HALIE CALLED AT 2125 FOR CRITICAL RESULT FOR PROCALCITIONIN OF 2.43. MILLINERY BLOCKER DOCTOR REENA RODRIGUEZ AWARE AT 2129, KNOWS THAT PT IS ON ANTIBIOTIC, NO NEW ORDERS FOR NOW. CHARTED CRITICAL RESULT ON THE INTERVENTION.
[2020-07-20] MEDS: risperiDONE 1 MG TABLET PO SCH (22:43)
[2020-07-21] VITALS: BP_SYST 104; BP_SYST 132; BP_DIAS 55; BP_DIAS 65
[2020-07-21 04:00] VITALS: BP 92/46
[2020-07-21] MEDS: AZITHROMYCIN 250 MG TABLET PO SCH (05:44)
[2020-07-21] MEDS: CEFTRIAXONE 1 G in IV D5W 50 ML IV SCH (05:44)
[2020-07-21] MEDS: HEPARIN SODIUM, PORCINE 5000 UNITS/1 ML VIAL SQ SCH ×2 (05:46→14:02)
[2020-07-21 06:00] VITALS: BP 118/57
--- NOTE | 2020-07-21 07:10 | NUR ---
TELE/RN CLOSING NOTES: PATIENT IN BED RESTING COMFORTABLY, A&O X 1-2, WITH EPISODES OF CONFUSION. VERBALLY RESPONSIVE AND ABLE TO MAKE NEEDS KNOWN. NO S/S OF PAIN/DISCOMFORT AT THIS TIME. BREATHING EVEN AND NON-LABORED ON 2L OXYGEN VIA NC, TOLERATING WELL, NO RESPIRATORY DISTRESS NOTED. NO CARDIAC DISTRESS NOTED, ON TELE MONITOR READING SR. IV ON THE LFA MIDLINE #18G. BAYRON AV SHUNT PRESENT. SAFETY MEASURES IN PLACE, FALL PRECAUTIONS MAINTAINED. BED IN LOW, LOCKED POSITION, SR UPX2. ALL DUE MEDS GIVEN ORDERED. ALL NURSING NEEDS MET AND RENDERED. WILL ENDORSE TO DAY SHIFT FOR TANJA.
[2020-07-21 08:00] VITALS: BP 136/70
--- NOTE | 2020-07-21 08:00 | NUR ---
RN Opening note Received patient in bed AO x 2 able to responds all stimuli, does no c/o pain or discomfort. Skin is warm to touch keep clean/dry, intact IV sit. Respiratory even and unlabored with oxygen at 2LPM via n/c, no sob or distress observed. Kept bed locked with elevated HOB for ensure airway and aspiration precaution also lowest bed position for safety. Call light within reach will continue to monitor.
[2020-07-21 08:25] LABS: BASOPHILS % (AUTO) 0.2 % (0.0-2.0); EOSINOPHILS % (AUTO) 0.1 % (0.0-6.0); HEMATOCRIT 22 % (39-51); HEMOGLOBIN 7.2 g/dL (13.5-17.5); LYMPHOCYTES # (AUTO) 0.2 /CMM (0.8-4.8); LYMPHOCYTES % (AUTO) 3.7 % (20.0-44.0); MEAN CORPUSCULAR HGB CONC 33 g/dl (31.0-36.0); MEAN CORPUSCULAR VOLUME 95 fL (80-96); MONOCYTES # (AUTO) 0.4 /CMM (0.1-1.30); MONOCYTES % (AUTO) 5.8 % (2.0-12.0); NEUTROPHILS # (AUTO) 5.9 /CMM (1.8-8.9); NEUTROPHILS % (AUTO) 90.2 % (43.0-81.0); PLATELET COUNT (AUTO) 219 /CMM (150-450); RED BLOOD CELL COUNT(AUTO) 2.28 MIL/uL (4.5-6.0); WHITE BLOOD COUNT (AUTO) 6.5 K/uL (4.3-11.0)
[2020-07-21 08:29] LABS: CALCIUM, SERUM 8.4 mg/dL (8.5-10.1); CARBON DIOXIDE 29 mmol/L (21-32); CHLORIDE 101 mmol/L (98-107); CREATININE 5.5 mg/dL (0.6-1.3); GLUCOSE 140 mg/dL (74-106); MAGNESIUM 2.1 mg/dL (1.8-2.4); PHOSPHORUS 3.9 mg/dL (2.5-4.9); POTASSIUM 3.7 mmol/L (3.5-5.1); SODIUM SERUM 140 mmol/L (136-145); UREA NITROGEN, BLOOD 49 mg/dL (7-18)
[2020-07-21] MEDS: SERTRALINE HCL 25 MG TABLET PO SCH (08:51)
[2020-07-21] MEDS: TAMSULOSIN 0.4 MG CAP.SR.24H PO SCH (08:51)
[2020-07-21] MEDS: SEVELAMER CARBONATE 800 MG TABLET PO SCH ×3 (08:51→18:05)
[2020-07-21] MEDS: FINASTERIDE (5 MG) 5 MG TABLET PO SCH (08:51)
[2020-07-21] MEDS: PANTOPRAZOLE 40 MG TABLET.DR PO SCH (08:52)
[2020-07-21 09:24] LABS: CREATINE KINASE, TOTAL 342 U/L (39-308)
[2020-07-21 09:25] LABS: FERRITIN 1920 ng/mL (8-388)
[2020-07-21] MEDS: DEXAMETHASONE SOD PHOSPHATE 10 MG/ML VIAL IV SCH (10:39)
[2020-07-21 16:00] VITALS: BP 120/50
--- NOTE | 2020-07-21 17:36 | NUR ---
Patient received discharge order but patient did not finished Plasma MD made aware who said ok to discharge without plasma done.
--- NOTE | 2020-07-21 18:00 | NUR ---
RN Closing note Patient in bed resting, does no appears pain or distress. Skin is warm to touch intact IV site, no fever observed during day shift. Respiratory even and unlabored with oxygen. Patient going discharge and endorsed production supervisor off shift. Kept locked bed with elevated HOB for ensure airway and aspiration precaution also lowest position for safety, call light within reach, will endorse production supervisor off shift.
--- NOTE | 2020-07-21 18:17 | NUR ---
dtr agrees with discharge. arranged to go back to [facility] ambulance scheduled to come for pear picker at 2000 per neo lining caser. [facility] [phone]
[2020-07-21 20:00] VITALS: BP 119/53
--- NOTE | 2020-07-21 20:50 | NUR ---
SCRIPT GIRL NOTES DISCHARGED PATIENT, ALERT AND ORIENTED X 2. AFEBRILE WITH NO S/S OF DISTRESS OBSERVED, LATEST SPO2 93% ON ROOM AIR. NO S/S OF PAIN/DISCOMFORT NOTED. DC PACKET GIVEN TO AMBULANCE WITH 2EMT'S. [facility]
== END 2020-07-21 20:50 | DRG 177 ==
LOC: ER 01:59 → TRANSITION 04:49 → OBSVTOIN 04:49 → TELE2 10:00
PROC: 5A1D70Z Performance of Urinary Filtration, Intermittent, Less than 6 Hours Per Day (ICD-10-PCS; principal; 2020-07-18)
PROC: 05HC33Z Insertion of Infusion Device into Left Basilic Vein, Percutaneous Approach (ICD-10-PCS; 2020-07-19)
PROC: 5A1D70Z Performance of Urinary Filtration, Intermittent, Less than 6 Hours Per Day (ICD-10-PCS; 2020-07-20)
DX: U07.1 COVID-19 (principal); N18.6 End stage renal disease; J96.01 Acute respiratory failure with hypoxia; J12.89 Other viral pneumonia; I13.2 Hypertensive heart and chronic kidney disease with heart failure and with stage 5 chronic kidney disease, or end stage renal disease; G93.40 Encephalopathy, unspecified; I50.9 Heart failure, unspecified; Z99.2 Dependence on renal dialysis; D63.8 Anemia in other chronic diseases classified elsewhere; E11.22 Type 2 diabetes mellitus with diabetic chronic kidney disease; F03.90 Unspecified dementia, unspecified severity, without behavioral disturbance, psychotic disturbance, mood disturbance, and anxiety; I48.91 Unspecified atrial fibrillation; I70.0 Atherosclerosis of aorta; Z79.01 Long term (current) use of anticoagulants; Z83.3 Family history of diabetes mellitus; Z85.46 Personal history of malignant neoplasm of prostate; Z87.891 Personal history of nicotine dependence
CPT/HCPCS: 36415; 71045-TC; 80048-TC; 80053-TC; 80061-TC; 80076-TC; 82272-TC; 82550-TC; 82553; 82728-TC; 83605-TC; 83615-TC; 83735-TC; 83880; 84100-TC; 84443-TC; 84484-TC; 85025-TC; 85378-TC; 85730-TC; 86140-TC; 87040-TC; 87081-TC; 90935-TC; A4216; C9803; G0378; J0456; J0696; J1100; J1644; J2405; J7050; J7060; P9047; U0003